=== PATIENT | female | born 1985 | race Caucasian/White ===

== ENCOUNTER 2018-12-25 22:17 | Outpatient (CLI) | payer BC ==
[2018-12-25 22:56] LABS: ADD UMIC YES; UR ASCORBIC ACID NEGATIVE (NEGATIVE); UR BACTERIA FEW /HPF (NONE SEEN); UR BILIRUBIN (Dip) NEGATIVE (NEGATIVE); UR BLOOD (Dip) 1+ mg/dL (NEGATIVE); UR CLARITY SLIGHTLY CLOUDY (CLEAR); UR COLOR YELLOW (YELLOW); UR GLUCOSE (Dip) NEGATIVE (NEGATIVE); UR KETONES (Dip) NEGATIVE (NEGATIVE); UR LEUKOCYTE ESTERASE (Dip) 3+ Leu/ul (NEGATIVE); UR NITRITE (Dip) NEGATIVE (NEGATIVE); UR RBC 19 /HPF (0-5); UR SPECIFIC GRAVITY (Dip) 1.005 (1.003-1.030); UR SQUAMOUS EPITHELIAL CELL FEW /HPF (FEW); UR TOTAL PROTEIN (Dip) NEGATIVE (NEGATIVE); UR UROBILINOGEN (Dip) 1+ mg/dL (NEGATIVE); UR WBC 26 /HPF (0-5)
[2018-12-25 23:29] LABS: ADD MAN DIFF? NO
[2018-12-25 23:31] LABS: WHITE BLOOD COUNT 8.4 10^3/ul (4.8-10.8)
[2018-12-25 23:31] LABS: BASOPHILS % 0.1 % (0.0-2.0); EOSINOPHILS # 0.2 10^3/ul (0.0-0.5); EOSINOPHILS % 2.3 % (0.0-7.0); HEMATOCRIT 34.6 % (37.0-47.0); HEMOGLOBIN 11.2 g/dl (12.0-16.0); LYMPHOCYTES # 1.8 10^3/ul (0.8-2.9); LYMPHOCYTES % 21.2 % (15.0-51.0); MEAN CORPUSCULAR HEMOGLOBIN 31.1 pg (29.0-33.0); MEAN CORPUSCULAR HGB CONC 32.4 g/dl (32.0-37.0); MEAN CORPUSCULAR VOLUME 96.1 fl (82.0-101.0); MEAN PLATELET VOLUME 11.6 fl (7.4-10.4); MONOCYTE # 0.6 10^3/ul (0.3-0.9); MONOCYTES % 7.5 % (0.0-11.0); NEUTROPHIL # 5.7 10^3/ul (1.6-7.5); NEUTROPHILS % 67.9 % (39.0-77.0); PLATELET COUNT 170 10^3/UL (140-415); RED CELL DISTRIBUTION WIDTH 14.5 % (11.5-14.5)
[2018-12-25 23:50] LABS: ALANINE AMINOTRANSFERASE 22 IU/L (13-69); ALBUMIN 2.6 g/dl (3.3-4.9); ALBUMIN/GLOBULIN RATIO 0.83; ALKALINE PHOSPHATASE 209 IU/L (42-121); ANION GAP 6 (5-13); ASPARTATE AMINO TRANSFERASE 22 IU/L (15-46); BILIRUBIN,INDIRECT 0.5 mg/dl (0-1.1); BILIRUBIN,TOTAL 0.5 mg/dl (0.2-1.3); BLOOD UREA NITROGEN 5 mg/dl (7-20); CALCIUM 9.1 mg/dl (8.4-10.2); CARBON DIOXIDE 23 mmol/L (21-31); CHLORIDE 107 mmol/L (97-110); CREATININE 0.49 mg/dl (0.44-1.00); Estimated GFR > 60 mL/min (>60); GLUCOSE 127 mg/dl (70-220); POTASSIUM 3.5 mmol/L (3.5-5.1); SODIUM 136 mmol/L (135-144); TOTAL PROTEIN 5.7 g/dl (6.1-8.1); URIC ACID 5.4 mg/dl (3.1-7.9)
== END 2018-12-26 01:06 | disposition home or self-care (01) ==
LOC: OBT 22:17 → L-D 22:18
DX: O13.3 Gestational [pregnancy-induced] hypertension without significant proteinuria, third trimester (principal); Z3A.35 35 weeks gestation of pregnancy
CPT/HCPCS: 76815; 76818; 80053; 81001; 84560; 85025

== ENCOUNTER 2018-12-27 16:11 | Inpatient (IN) | payer BC ==
[2018-12-27 17:01] LABS: COLLECTION PERIOD 24 hrs
[2018-12-27 17:14] LABS: COLLECTION PERIOD 24 hrs; SCRET 0.49 mg/dl (0.44-1.00); VOLUME 3450 ml/24hrs; VOLUME 3450 mls
[2018-12-27 17:23] LABS: CREATININE,URINE RANDOM 45.69 mg/dl (20-320); PROTEIN/CREAT RATIO 0.37 RATIO
[2018-12-27 17:52] LABS: ADD MAN DIFF? NO
[2018-12-27 17:55] LABS: WHITE BLOOD COUNT 9.7 10^3/ul (4.8-10.8)
[2018-12-27 17:55] LABS: BASOPHILS % 0.2 % (0.0-2.0); EOSINOPHILS # 0.1 10^3/ul (0.0-0.5); EOSINOPHILS % 0.9 % (0.0-7.0); HEMATOCRIT 35.4 % (37.0-47.0); HEMOGLOBIN 11.3 g/dl (12.0-16.0); LYMPHOCYTES # 1.5 10^3/ul (0.8-2.9); MEAN CORPUSCULAR HEMOGLOBIN 30.8 pg (29.0-33.0); MEAN CORPUSCULAR HGB CONC 31.9 g/dl (32.0-37.0); MEAN CORPUSCULAR VOLUME 96.5 fl (82.0-101.0); MEAN PLATELET VOLUME 12.1 fl (7.4-10.4); MONOCYTE # 0.6 10^3/ul (0.3-0.9); MONOCYTES % 6.1 % (0.0-11.0); NEUTROPHIL # 7.5 10^3/ul (1.6-7.5); NEUTROPHILS % 77.2 % (39.0-77.0); PLATELET COUNT 184 10^3/UL (140-415); RED BLOOD COUNT 3.67 10^6/ul (4.20-5.40); RED CELL DISTRIBUTION WIDTH 14.5 % (11.5-14.5)
[2018-12-27 18:02] LABS: 24HR URINE TOTAL PROTEIN 586.5 mg/24hrs (42.0-225.0); CREATININE CLEARANCE 223.4 mls/min (84.0-162.0); CREATININE,URINE RANDOM 45.69 mg/dl (20-320)
[2018-12-27] MEDS ORDERED: DIPHENHYDRAMINE 25 MG CAP PO (19:00)
[2018-12-27 19:44] LABS: ADD MAN DIFF? NO
[2018-12-27 19:47] LABS: WHITE BLOOD COUNT 8.8 10^3/ul (4.8-10.8)
[2018-12-27 19:47] LABS: BASOPHILS % 0.2 % (0.0-2.0); EOSINOPHILS # 0.1 10^3/ul (0.0-0.5); EOSINOPHILS % 0.8 % (0.0-7.0); HEMATOCRIT 34.6 % (37.0-47.0); HEMOGLOBIN 11.2 g/dl (12.0-16.0); LYMPHOCYTES # 1.5 10^3/ul (0.8-2.9); LYMPHOCYTES % 16.7 % (15.0-51.0); MEAN CORPUSCULAR HEMOGLOBIN 31.1 pg (29.0-33.0); MEAN CORPUSCULAR HGB CONC 32.4 g/dl (32.0-37.0); MEAN CORPUSCULAR VOLUME 96.1 fl (82.0-101.0); MEAN PLATELET VOLUME 12.3 fl (7.4-10.4); MONOCYTE # 0.5 10^3/ul (0.3-0.9); MONOCYTES % 5.9 % (0.0-11.0); NEUTROPHIL # 6.6 10^3/ul (1.6-7.5); NEUTROPHILS % 75.5 % (39.0-77.0); PLATELET COUNT 180 10^3/UL (140-415); RED CELL DISTRIBUTION WIDTH 14.4 % (11.5-14.5)
[2018-12-27 19:54] LABS: ALANINE AMINOTRANSFERASE 25 IU/L (13-69); ALBUMIN 2.8 g/dl (3.3-4.9); ALBUMIN/GLOBULIN RATIO 1.03; ALKALINE PHOSPHATASE 196 IU/L (42-121); ANION GAP 9 (5-13); ASPARTATE AMINO TRANSFERASE 22 IU/L (15-46); BILIRUBIN,INDIRECT 0.5 mg/dl (0-1.1); BILIRUBIN,TOTAL 0.5 mg/dl (0.2-1.3); BLOOD UREA NITROGEN 6 mg/dl (7-20); CARBON DIOXIDE 20 mmol/L (21-31); CHLORIDE 106 mmol/L (97-110); CREATININE 0.45 mg/dl (0.44-1.00); Estimated GFR > 60 mL/min (>60); GLUCOSE 73 mg/dl (70-220); POTASSIUM 3.9 mmol/L (3.5-5.1); SODIUM 135 mmol/L (135-144); TOTAL PROTEIN 5.5 g/dl (6.1-8.1); URIC ACID 5.2 mg/dl (3.1-7.9)
[2018-12-27] MEDS: LACTATED RINGER'S 1,000 ML IV (20:38)
[2018-12-27] MEDS: DOCUSATE SODIUM 100 MG CAP PO (20:45)
[2018-12-27] MEDS: PANTOPRAZOLE (EC) 40 MG TAB PO (20:45)
[2018-12-27] MEDS: PRENATAL VITAMIN PO (20:45)
[2018-12-27] MEDS: BETAMET NA PHOS/AC(6 MG/ML) 2 ML INJ SYG IM (21:16)
[2018-12-28] MEDS: CEPHALEXIN 500 MG CAP PO ×4 (00:16→18:30)
[2018-12-28] MEDS: LACTATED RINGER'S 1,000 ML IV ×2 (03:22→11:40)
[2018-12-28] MEDS: PRENATAL VITAMIN PO (08:56)
[2018-12-28] MEDS: AL HYDROX/MG HYDROX/SIMETH 30 ML CUP PO (08:56)
[2018-12-28] MEDS: DOCUSATE SODIUM 100 MG CAP PO (08:56)
[2018-12-28] MEDS: PANTOPRAZOLE (EC) 40 MG TAB PO (10:03)
[2018-12-28 15:33] LABS: ADD MAN DIFF? NO
[2018-12-28 15:38] LABS: WHITE BLOOD COUNT 9.1 10^3/ul (4.8-10.8)
[2018-12-28 15:38] LABS: BASOPHILS % 0.1 % (0.0-2.0); EOSINOPHILS % 0.1 % (0.0-7.0); HEMATOCRIT 35.7 % (37.0-47.0); HEMOGLOBIN 11.5 g/dl (12.0-16.0); LYMPHOCYTES # 1.2 10^3/ul (0.8-2.9); LYMPHOCYTES % 13.4 % (15.0-51.0); MEAN CORPUSCULAR HEMOGLOBIN 31.1 pg (29.0-33.0); MEAN CORPUSCULAR HGB CONC 32.2 g/dl (32.0-37.0); MEAN CORPUSCULAR VOLUME 96.5 fl (82.0-101.0); MEAN PLATELET VOLUME 12.1 fl (7.4-10.4); MONOCYTE # 0.4 10^3/ul (0.3-0.9); MONOCYTES % 4.1 % (0.0-11.0); NEUTROPHIL # 7.4 10^3/ul (1.6-7.5); PLATELET COUNT 180 10^3/UL (140-415); RED CELL DISTRIBUTION WIDTH 14.7 % (11.5-14.5)
[2018-12-28 16:00] LABS: ALANINE AMINOTRANSFERASE 21 IU/L (13-69); ALBUMIN 3.3 g/dl (3.3-4.9); ALKALINE PHOSPHATASE 223 IU/L (42-121); ANION GAP 9 (5-13); ASPARTATE AMINO TRANSFERASE 22 IU/L (15-46); BILIRUBIN,INDIRECT 0.7 mg/dl (0-1.1); BILIRUBIN,TOTAL 0.7 mg/dl (0.2-1.3); BLOOD UREA NITROGEN 5 mg/dl (7-20); CALCIUM 9.3 mg/dl (8.4-10.2); CARBON DIOXIDE 20 mmol/L (21-31); CHLORIDE 107 mmol/L (97-110); CREATININE 0.51 mg/dl (0.44-1.00); Estimated GFR > 60 mL/min (>60); GLUCOSE 124 mg/dl (70-220); POTASSIUM 3.8 mmol/L (3.5-5.1); SODIUM 136 mmol/L (135-144); TOTAL PROTEIN 6.6 g/dl (6.1-8.1)
[2018-12-28] MEDS: BETAMET NA PHOS/AC(6 MG/ML) 2 ML INJ SYG IM (20:56)
[2018-12-29] MEDS: CEPHALEXIN 500 MG CAP PO ×5 (06:00→23:38)
[2018-12-29 06:44] LABS: ADD MAN DIFF? NO
[2018-12-29 06:53] LABS: WHITE BLOOD COUNT 8.8 10^3/ul (4.8-10.8)
[2018-12-29 06:53] LABS: BASOPHILS % 0.1 % (0.0-2.0); HEMATOCRIT 33.2 % (37.0-47.0); HEMOGLOBIN 10.4 g/dl (12.0-16.0); LYMPHOCYTES # 1.1 10^3/ul (0.8-2.9); LYMPHOCYTES % 11.9 % (15.0-51.0); MEAN CORPUSCULAR HEMOGLOBIN 30.4 pg (29.0-33.0); MEAN CORPUSCULAR HGB CONC 31.3 g/dl (32.0-37.0); MEAN CORPUSCULAR VOLUME 97.1 fl (82.0-101.0); MEAN PLATELET VOLUME 12.5 fl (7.4-10.4); MONOCYTE # 0.4 10^3/ul (0.3-0.9); MONOCYTES % 4.1 % (0.0-11.0); NEUTROPHIL # 7.2 10^3/ul (1.6-7.5); PLATELET COUNT 169 10^3/UL (140-415); RED BLOOD COUNT 3.42 10^6/ul (4.20-5.40); RED CELL DISTRIBUTION WIDTH 14.9 % (11.5-14.5)
[2018-12-29 07:17] LABS: ALANINE AMINOTRANSFERASE 25 IU/L (13-69); ALBUMIN 2.6 g/dl (3.3-4.9); ALBUMIN/GLOBULIN RATIO 0.86; ALKALINE PHOSPHATASE 197 IU/L (42-121); ANION GAP 7 (5-13); ASPARTATE AMINO TRANSFERASE 31 IU/L (15-46); BILIRUBIN,INDIRECT 0.5 mg/dl (0-1.1); BILIRUBIN,TOTAL 0.5 mg/dl (0.2-1.3); BLOOD UREA NITROGEN 5 mg/dl (7-20); CARBON DIOXIDE 23 mmol/L (21-31); CHLORIDE 108 mmol/L (97-110); CREATININE 0.45 mg/dl (0.44-1.00); Estimated GFR > 60 mL/min (>60); GLUCOSE 126 mg/dl (70-220); LACTATE DEHYDROGENASE 460 IU/L (313-618); POTASSIUM 4.1 mmol/L (3.5-5.1); SODIUM 138 mmol/L (135-144); TOTAL PROTEIN 5.6 g/dl (6.1-8.1); URIC ACID 5.8 mg/dl (3.1-7.9)
[2018-12-29] MEDS: PANTOPRAZOLE (EC) 40 MG TAB PO (09:00)
[2018-12-29] MEDS: DOCUSATE SODIUM 100 MG CAP PO (11:37)
[2018-12-29] MEDS: PRENATAL VITAMIN PO (11:37)
[2018-12-30] MEDS: CEPHALEXIN 500 MG CAP PO ×4 (06:05→23:56)
[2018-12-30 06:43] LABS: ADD MAN DIFF? NO
[2018-12-30 06:45] LABS: BASOPHILS % 0.4 % (0.0-2.0); EOSINOPHILS % 0.3 % (0.0-7.0); LYMPHOCYTES # 1.8 10^3/ul (0.8-2.9); LYMPHOCYTES % 22.1 % (15.0-51.0); MEAN CORPUSCULAR HEMOGLOBIN 31.1 pg (29.0-33.0); MEAN CORPUSCULAR HGB CONC 31.3 g/dl (32.0-37.0); MEAN CORPUSCULAR VOLUME 99.4 fl (82.0-101.0); MEAN PLATELET VOLUME 11.5 fl (7.4-10.4); MONOCYTE # 0.7 10^3/ul (0.3-0.9); MONOCYTES % 8.9 % (0.0-11.0); NEUTROPHIL # 5.1 10^3/ul (1.6-7.5); NEUTROPHILS % 64.3 % (39.0-77.0); NUCLEATED RED BLOOD CELLS% 0.3 /100WBC (0.0-0.0); PLATELET COUNT 160 10^3/UL (140-415); RED BLOOD COUNT 3.22 10^6/ul (4.20-5.40)
[2018-12-30 07:09] LABS: ALANINE AMINOTRANSFERASE 39 IU/L (13-69); ALBUMIN 2.8 g/dl (3.3-4.9); ALKALINE PHOSPHATASE 167 IU/L (42-121); ANION GAP 6 (5-13); ASPARTATE AMINO TRANSFERASE 50 IU/L (15-46); BILIRUBIN,INDIRECT 0.4 mg/dl (0-1.1); BILIRUBIN,TOTAL 0.4 mg/dl (0.2-1.3); BLOOD UREA NITROGEN 8 mg/dl (7-20); CALCIUM 8.6 mg/dl (8.4-10.2); CARBON DIOXIDE 22 mmol/L (21-31); CHLORIDE 110 mmol/L (97-110); CREATININE 0.48 mg/dl (0.44-1.00); Estimated GFR > 60 mL/min (>60); GLUCOSE 95 mg/dl (70-220); LACTATE DEHYDROGENASE 299 IU/L (313-618); POTASSIUM 3.8 mmol/L (3.5-5.1); SODIUM 138 mmol/L (135-144); TOTAL PROTEIN 5.6 g/dl (6.1-8.1); URIC ACID 6.1 mg/dl (3.1-7.9)
[2018-12-30] MEDS: DOCUSATE SODIUM 100 MG CAP PO (09:47)
[2018-12-30] MEDS: PRENATAL VITAMIN PO (13:35)
[2018-12-30] MEDS: PANTOPRAZOLE (EC) 40 MG TAB PO (15:25)
[2018-12-31] MEDS: CEPHALEXIN 500 MG CAP PO ×2 (05:48→12:10)
[2018-12-31 06:11] LABS: ADD MAN DIFF? NO
[2018-12-31 06:17] LABS: BASOPHILS % 0.2 % (0.0-2.0); EOSINOPHILS # 0.1 10^3/ul (0.0-0.5); EOSINOPHILS % 0.9 % (0.0-7.0); HEMATOCRIT 32.6 % (37.0-47.0); HEMOGLOBIN 10.1 g/dl (12.0-16.0); LYMPHOCYTES # 1.8 10^3/ul (0.8-2.9); MEAN CORPUSCULAR HEMOGLOBIN 30.3 pg (29.0-33.0); MEAN CORPUSCULAR VOLUME 97.9 fl (82.0-101.0); MEAN PLATELET VOLUME 12.3 fl (7.4-10.4); MONOCYTE # 0.6 10^3/ul (0.3-0.9); MONOCYTES % 7.5 % (0.0-11.0); NEUTROPHIL # 5.4 10^3/ul (1.6-7.5); NEUTROPHILS % 67.5 % (39.0-77.0); PLATELET COUNT 172 10^3/UL (140-415); RED BLOOD COUNT 3.33 10^6/ul (4.20-5.40); RED CELL DISTRIBUTION WIDTH 15.1 % (11.5-14.5)
[2018-12-31 06:42] LABS: ALANINE AMINOTRANSFERASE 61 IU/L (13-69); ALKALINE PHOSPHATASE 179 IU/L (42-121); ANION GAP 3 (5-13); ASPARTATE AMINO TRANSFERASE 55 IU/L (15-46); BILIRUBIN,INDIRECT 0.5 mg/dl (0-1.1); BILIRUBIN,TOTAL 0.5 mg/dl (0.2-1.3); BLOOD UREA NITROGEN 7 mg/dl (7-20); CALCIUM 8.8 mg/dl (8.4-10.2); CARBON DIOXIDE 24 mmol/L (21-31); CHLORIDE 109 mmol/L (97-110); CREATININE 0.42 mg/dl (0.44-1.00); Estimated GFR > 60 mL/min (>60); GLUCOSE 107 mg/dl (70-220); LACTATE DEHYDROGENASE 333 IU/L (313-618); POTASSIUM 4.2 mmol/L (3.5-5.1); SODIUM 136 mmol/L (135-144); URIC ACID 4.9 mg/dl (3.1-7.9)
[2018-12-31 06:43] LABS: ALBUMIN 2.3 g/dl (3.3-4.9); ALBUMIN/GLOBULIN RATIO 0.85
[2018-12-31] MEDS: PRENATAL VITAMIN PO (08:34)
[2018-12-31] MEDS: DOCUSATE SODIUM 100 MG CAP PO (08:34)
[2018-12-31] MEDS: PANTOPRAZOLE (EC) 40 MG TAB PO (10:51)
[2018-12-31] MEDS: CEPHALEXIN 250 MG CAP PO ×2 (18:17→23:40)
[2019-01-01 05:54] LABS: ADD MAN DIFF? NO
[2019-01-01 05:57] LABS: BASOPHILS % 0.2 % (0.0-2.0); EOSINOPHILS # 0.1 10^3/ul (0.0-0.5); EOSINOPHILS % 1.3 % (0.0-7.0); HEMATOCRIT 33.8 % (37.0-47.0); HEMOGLOBIN 10.9 g/dl (12.0-16.0); LYMPHOCYTES # 1.6 10^3/ul (0.8-2.9); LYMPHOCYTES % 19.3 % (15.0-51.0); MEAN CORPUSCULAR HEMOGLOBIN 31.8 pg (29.0-33.0); MEAN CORPUSCULAR HGB CONC 32.2 g/dl (32.0-37.0); MEAN CORPUSCULAR VOLUME 98.5 fl (82.0-101.0); MEAN PLATELET VOLUME 11.9 fl (7.4-10.4); MONOCYTE # 0.5 10^3/ul (0.3-0.9); MONOCYTES % 6.2 % (0.0-11.0); NEUTROPHIL # 5.9 10^3/ul (1.6-7.5); NEUTROPHILS % 71.3 % (39.0-77.0); PLATELET COUNT 169 10^3/UL (140-415); RED BLOOD COUNT 3.43 10^6/ul (4.20-5.40); RED CELL DISTRIBUTION WIDTH 14.8 % (11.5-14.5)
[2019-01-01 05:57] LABS: WHITE BLOOD COUNT 8.2 10^3/ul (4.8-10.8)
[2019-01-01 06:28] LABS: ALANINE AMINOTRANSFERASE 74 IU/L (13-69); ALBUMIN 2.6 g/dl (3.3-4.9); ALBUMIN/GLOBULIN RATIO 0.86; ALKALINE PHOSPHATASE 204 IU/L (42-121); ANION GAP 5 (5-13); ASPARTATE AMINO TRANSFERASE 66 IU/L (15-46); BILIRUBIN,INDIRECT 0.7 mg/dl (0-1.1); BILIRUBIN,TOTAL 0.7 mg/dl (0.2-1.3); BLOOD UREA NITROGEN 7 mg/dl (7-20); CARBON DIOXIDE 23 mmol/L (21-31); CHLORIDE 108 mmol/L (97-110); CREATININE 0.46 mg/dl (0.44-1.00); Estimated GFR > 60 mL/min (>60); GLUCOSE 95 mg/dl (70-220); LACTATE DEHYDROGENASE 306 IU/L (313-618); POTASSIUM 3.8 mmol/L (3.5-5.1); SODIUM 136 mmol/L (135-144); TOTAL PROTEIN 5.6 g/dl (6.1-8.1); URIC ACID 4.8 mg/dl (3.1-7.9)
[2019-01-01] MEDS: PANTOPRAZOLE (EC) 40 MG TAB PO (06:42)
[2019-01-01] MEDS: CEPHALEXIN 250 MG CAP PO ×2 (08:17→12:37)
[2019-01-01] MEDS: DOCUSATE SODIUM 100 MG CAP PO (09:47)
[2019-01-01] MEDS: PRENATAL VITAMIN PO (09:47)
[2019-01-01] MEDS: CEPHALEXIN 500 MG CAP PO ×2 (18:28→23:43)
[2019-01-02] MEDS: CEPHALEXIN 500 MG CAP PO ×2 (06:00→12:00)
[2019-01-02] MEDS: PANTOPRAZOLE (EC) 40 MG TAB PO (06:00)
[2019-01-02 06:07] LABS: ADD MAN DIFF? NO
[2019-01-02 06:15] LABS: WHITE BLOOD COUNT 9.2 10^3/ul (4.8-10.8)
[2019-01-02 06:15] LABS: BASOPHILS % 0.3 % (0.0-2.0); EOSINOPHILS # 0.1 10^3/ul (0.0-0.5); EOSINOPHILS % 1.4 % (0.0-7.0); HEMATOCRIT 34.8 % (37.0-47.0); HEMOGLOBIN 11.1 g/dl (12.0-16.0); LYMPHOCYTES % 21.5 % (15.0-51.0); MEAN CORPUSCULAR HEMOGLOBIN 31.3 pg (29.0-33.0); MEAN CORPUSCULAR HGB CONC 31.9 g/dl (32.0-37.0); MEAN PLATELET VOLUME 12.2 fl (7.4-10.4); MONOCYTE # 0.6 10^3/ul (0.3-0.9); MONOCYTES % 6.5 % (0.0-11.0); NEUTROPHIL # 6.3 10^3/ul (1.6-7.5); PLATELET COUNT 182 10^3/UL (140-415); RED BLOOD COUNT 3.55 10^6/ul (4.20-5.40); RED CELL DISTRIBUTION WIDTH 14.6 % (11.5-14.5)
[2019-01-02 06:44] LABS: ALANINE AMINOTRANSFERASE 77 IU/L (13-69); ALBUMIN 2.7 g/dl (3.3-4.9); ALKALINE PHOSPHATASE 215 IU/L (42-121); ANION GAP 3 (5-13); ASPARTATE AMINO TRANSFERASE 59 IU/L (15-46); BILIRUBIN,INDIRECT 0.6 mg/dl (0-1.1); BILIRUBIN,TOTAL 0.6 mg/dl (0.2-1.3); BLOOD UREA NITROGEN 7 mg/dl (7-20); CALCIUM 9.1 mg/dl (8.4-10.2); CARBON DIOXIDE 25 mmol/L (21-31); CHLORIDE 108 mmol/L (97-110); CREATININE 0.53 mg/dl (0.44-1.00); Estimated GFR > 60 mL/min (>60); GLUCOSE 93 mg/dl (70-220); LACTATE DEHYDROGENASE 443 IU/L (313-618); POTASSIUM 4.1 mmol/L (3.5-5.1); SODIUM 136 mmol/L (135-144); TOTAL PROTEIN 5.7 g/dl (6.1-8.1)
[2019-01-02] MEDS: DOCUSATE SODIUM 100 MG CAP PO (09:12)
[2019-01-02] MEDS: PRENATAL VITAMIN PO (09:12)
[2019-01-02] MEDS: AL HYDROX/MG HYDROX/SIMETH 30 ML CUP PO (09:12)
[2019-01-03] MEDS: PANTOPRAZOLE (EC) 40 MG TAB PO (05:57)
[2019-01-03] MEDS: PRENATAL VITAMIN PO (08:50)
[2019-01-03] MEDS: DOCUSATE SODIUM 100 MG CAP PO (08:50)
[2019-01-03 08:55] LABS: ADD MAN DIFF? NO
[2019-01-03 08:57] LABS: WHITE BLOOD COUNT 9.7 10^3/ul (4.8-10.8)
[2019-01-03 08:57] LABS: BASOPHILS % 0.2 % (0.0-2.0); EOSINOPHILS # 0.1 10^3/ul (0.0-0.5); EOSINOPHILS % 1.3 % (0.0-7.0); HEMATOCRIT 35.3 % (37.0-47.0); HEMOGLOBIN 11.2 g/dl (12.0-16.0); LYMPHOCYTES # 1.9 10^3/ul (0.8-2.9); LYMPHOCYTES % 19.7 % (15.0-51.0); MEAN CORPUSCULAR HEMOGLOBIN 30.8 pg (29.0-33.0); MEAN CORPUSCULAR HGB CONC 31.7 g/dl (32.0-37.0); MEAN PLATELET VOLUME 11.7 fl (7.4-10.4); MONOCYTE # 0.5 10^3/ul (0.3-0.9); MONOCYTES % 5.6 % (0.0-11.0); NEUTROPHIL # 6.9 10^3/ul (1.6-7.5); NEUTROPHILS % 71.9 % (39.0-77.0); PLATELET COUNT 177 10^3/UL (140-415); RED BLOOD COUNT 3.64 10^6/ul (4.20-5.40); RED CELL DISTRIBUTION WIDTH 14.8 % (11.5-14.5)
[2019-01-03 09:15] LABS: ALANINE AMINOTRANSFERASE 73 IU/L (13-69); ALBUMIN 2.8 g/dl (3.3-4.9); ALKALINE PHOSPHATASE 219 IU/L (42-121); ANION GAP 5 (5-13); ASPARTATE AMINO TRANSFERASE 51 IU/L (15-46); BILIRUBIN,INDIRECT 0.8 mg/dl (0-1.1); BILIRUBIN,TOTAL 0.8 mg/dl (0.2-1.3); BLOOD UREA NITROGEN 5 mg/dl (7-20); CARBON DIOXIDE 22 mmol/L (21-31); CHLORIDE 108 mmol/L (97-110); CREATININE 0.43 mg/dl (0.44-1.00); Estimated GFR > 60 mL/min (>60); GLUCOSE 98 mg/dl (70-220); LACTATE DEHYDROGENASE 294 IU/L (313-618); POTASSIUM 3.8 mmol/L (3.5-5.1); SODIUM 135 mmol/L (135-144); TOTAL PROTEIN 5.9 g/dl (6.1-8.1); URIC ACID 4.7 mg/dl (3.1-7.9)
[2019-01-03] MEDS: ACETAMINOPHEN 500 MG TAB PO (17:25)
[2019-01-04] MEDS: PANTOPRAZOLE (EC) 40 MG TAB PO (06:02)
[2019-01-04] MEDS ORDERED: OXYTOCIN 30 UNITS/LR 500 ML IV ×2 (08:30)
[2019-01-04] MEDS ORDERED: METHYLERGONOVINE 0.2 MG INJ IM (08:30)
[2019-01-04] MEDS ORDERED: MISOPROSTOL 200 MCG TAB PR (08:30)
[2019-01-04] MEDS ORDERED: LIDOCAINE 1% (MPF) 30 ML INJ INJ (08:30)
[2019-01-04] MEDS: PRENATAL VITAMIN PO (08:54)
[2019-01-04] MEDS: DOCUSATE SODIUM 100 MG CAP PO (08:54)
[2019-01-04 10:17] LABS: ADD MAN DIFF? NO
[2019-01-04 10:21] LABS: WHITE BLOOD COUNT 8.7 10^3/ul (4.8-10.8)
[2019-01-04 10:21] LABS: BASOPHILS % 0.2 % (0.0-2.0); EOSINOPHILS # 0.1 10^3/ul (0.0-0.5); EOSINOPHILS % 1.4 % (0.0-7.0); HEMOGLOBIN 11.2 g/dl (12.0-16.0); LYMPHOCYTES # 1.9 10^3/ul (0.8-2.9); MEAN CORPUSCULAR HEMOGLOBIN 29.6 pg (29.0-33.0); MEAN CORPUSCULAR HGB CONC 30.3 g/dl (32.0-37.0); MEAN CORPUSCULAR VOLUME 97.9 fl (82.0-101.0); MEAN PLATELET VOLUME 12.5 fl (7.4-10.4); MONOCYTE # 0.7 10^3/ul (0.3-0.9); MONOCYTES % 7.6 % (0.0-11.0); NEUTROPHIL # 5.9 10^3/ul (1.6-7.5); NEUTROPHILS % 67.5 % (39.0-77.0); PLATELET COUNT 197 10^3/UL (140-415); RED BLOOD COUNT 3.78 10^6/ul (4.20-5.40); RED CELL DISTRIBUTION WIDTH 14.9 % (11.5-14.5)
[2019-01-04] MEDS: MISOPROSTOL 50 MCG CAPSULE PO ×3 (10:28→22:36)
[2019-01-04] MEDS: LACTATED RINGER'S 1,000 ML IV ×3 (10:36→21:07)
[2019-01-04 11:32] LABS: INR 1.03; PROTIME 13.6 Sec (11.9-14.9); PT RATIO 1.1
[2019-01-04] MEDS: MISOPROSTOL 50 MCG CAPSULE VAG (17:54)
[2019-01-04 18:56] LABS: RAPID PLASMA REAGIN NONREACTIVE (NR)
[2019-01-04] MEDS ORDERED: FENTAnyl 2MCG/ML-ROPIV 0.2% 100 ML (21:14)
[2019-01-04] MEDS ORDERED: FENTAnyl 50 MCG/ML VIAL (21:14)
[2019-01-04] MEDS ORDERED: NALOXONE (0.4 MG/ML) INJ IV (21:30)
[2019-01-05] MEDS: LACTATED RINGER'S 1,000 ML IV ×3 (00:50→17:20)
[2019-01-05] MEDS: MISOPROSTOL 50 MCG CAPSULE PO ×4 (04:31→18:41)
[2019-01-05] MEDS: PANTOPRAZOLE (EC) 40 MG TAB PO (06:00)
[2019-01-05] MEDS: FENTAnyl 2MCG/ML-ROPIV 0.2% 100 ML BAG EPI ×2 (07:18→17:21)
[2019-01-05] MEDS: PRENATAL VITAMIN PO (09:00)
[2019-01-05] MEDS: DOCUSATE SODIUM 100 MG CAP PO (09:00)
[2019-01-06] MEDS: OXYTOCIN 30 UNITS/LR 500 ML IV (00:05)
[2019-01-06] MEDS: LACTATED RINGER'S 1,000 ML IV ×3 (01:20→19:43)
[2019-01-06] MEDS: FENTAnyl 2MCG/ML-ROPIV 0.2% 100 ML BAG EPI ×3 (03:21→23:37)
[2019-01-07] MEDS: LACTATED RINGER'S 1,000 ML IV ×2 (03:50→22:30)
[2019-01-07] MEDS: PANTOPRAZOLE (EC) 40 MG TAB PO (06:00)
[2019-01-07] MEDS: DOCUSATE SODIUM 100 MG CAP PO (06:06)
[2019-01-07] MEDS: PRENATAL VITAMIN PO (06:06)
[2019-01-07] MEDS: FENTAnyl 2MCG/ML-ROPIV 0.2% 100 ML BAG EPI (09:37)
[2019-01-07] MEDS ORDERED: metroNIDAZOLE 500 MG TAB PO (10:00)
[2019-01-07] MEDS ORDERED: ROPIVACAINE 0.5 % 30 ML VIAL (11:33)
[2019-01-07] MEDS: CEFAZOLIN 3 GM in DEXTROSE 5% 100 ML IV (11:35)
[2019-01-07] MEDS ORDERED: LABETALOL HCL 20MG INJ (11:51)
[2019-01-07] MEDS ORDERED: OXYTOCIN 10 UNIT INJ ×2 (12:02)
[2019-01-07] MEDS ORDERED: METOCLOPRAMIDE 10 MG INJ (12:13)
[2019-01-07] MEDS ORDERED: CEFAZOLIN 1 GM INJ (12:13)
[2019-01-07] MEDS ORDERED: SUCCINYLCHOLINE CHLORIDE 100 MG/5 ML SYG IV (12:13)
[2019-01-07] MEDS ORDERED: DEXAMETHASONE 4 MG/ML 1 ML INJ (12:13)
[2019-01-07] MEDS ORDERED: KETOROLAC 30 MG INJ (12:13)
[2019-01-07] MEDS ORDERED: PROPOFOL 20 ML (12:13)
[2019-01-07] MEDS ORDERED: PHENYLephrine (100 MCG/ML) 10ML SYG (12:17)
[2019-01-07] MEDS ORDERED: MEPERIDINE 25 MG INJ IV ×2 (12:30→16:00)
[2019-01-07] MEDS ORDERED: OXYCODONE/ACETAMINOPHEN (5/325) TAB PO ×3 (12:30→16:00)
[2019-01-07] MEDS ORDERED: METOCLOPRAMIDE 10 MG INJ IV ×2 (12:30→16:00)
[2019-01-07] MEDS ORDERED: ONDANSETRON 4 MG INJ IV ×3 (12:30→16:30)
[2019-01-07] MEDS ORDERED: FENTAnyl 50 MCG/ML VIAL IV ×5 (12:30→16:00)
[2019-01-07] MEDS ORDERED: LABETALOL HCL 20MG INJ IV ×2 (12:30→16:00)
[2019-01-07] MEDS ORDERED: HYDROmorphONE 1 MG/5 ML IV SYRINGE IV ×5 (12:30→16:00)
[2019-01-07] MEDS ORDERED: EPHEDrine 25 MG/5 ML SYG IV ×2 (12:30→16:00)
[2019-01-07] MEDS ORDERED: DIPHENHYDRAMINE 50 MG INJ IV ×3 (12:30→16:30)
[2019-01-07] MEDS ORDERED: MISOPROSTOL 200 MCG TAB PR (13:00)
[2019-01-07] MEDS ORDERED: NACL 0.9% 3 ML SYG IV ×2 (13:00)
[2019-01-07] MEDS ORDERED: CARBOPROST 250 MCG INJ IM (13:00)
[2019-01-07] MEDS ORDERED: LANOLIN HPA 1 PKT TOP (13:00)
[2019-01-07] MEDS ORDERED: METHYLERGONOVINE 0.2 MG INJ IM (13:00)
[2019-01-07] MEDS: AZITHROMYCIN 500MG/NS (PMX) 250 ML IV (13:19)
[2019-01-07] MEDS: OXYTOCIN 30 UNITS/LR 500 ML IV ×3 (13:27→22:14)
[2019-01-07] MEDS: CARBOPROST 250 MCG INJ IM (14:42)
[2019-01-07] MEDS: ONDANSETRON 4 MG INJ IV (16:20)
[2019-01-07] MEDS ORDERED: NALOXONE (0.4 MG/ML) INJ IV (16:30)
[2019-01-07] MEDS ORDERED: morphine 2 MG INJ IV ×2 (16:30)
[2019-01-07] MEDS ORDERED: HYDROmorphONE 0.5 MG/0.5 ML SYG IV (16:30)
[2019-01-07] MEDS ORDERED: ACETAMINOPHEN 500 MG TAB PO (16:30)
[2019-01-07] MEDS ORDERED: NALBUPHINE HCL (10 MG/1 ML) INJ IV (16:30)
[2019-01-07] MEDS: IBUPROFEN 600 MG TAB PO (18:00)
[2019-01-07] MEDS: CEFAZOLIN 2 GM/50 ML (PMX) 50 ML IVPB (20:07)
[2019-01-07] MEDS: KETOROLAC 30 MG INJ IV (20:07)
[2019-01-07] MEDS: metroNIDAZOLE 500 MG TAB GTB (20:58)
[2019-01-07] MEDS: HYDROmorphONE 0.5 MG/0.5 ML SYG IV (22:12)
[2019-01-08] MEDS: HYDROmorphONE 0.5 MG/0.5 ML SYG IV ×2 (01:05→07:05)
[2019-01-08] MEDS: KETOROLAC 30 MG INJ IV (04:54)
[2019-01-08] MEDS: CEFAZOLIN 2 GM/50 ML (PMX) 50 ML IVPB ×2 (05:11→12:35)
[2019-01-08] MEDS: IBUPROFEN 600 MG TAB PO ×4 (06:00→17:59)
[2019-01-08] MEDS: LACTATED RINGER'S 1,000 ML IV ×3 (06:30→22:30)
[2019-01-08] MEDS: metroNIDAZOLE 500 MG TAB GTB ×2 (09:26→21:39)
[2019-01-08 09:27] LABS: ADD MAN DIFF? NO
[2019-01-08 09:28] LABS: WHITE BLOOD COUNT 12.7 10^3/ul (4.8-10.8)
[2019-01-08 09:28] LABS: BASOPHILS % 0.2 % (0.0-2.0); EOSINOPHILS # 0.1 10^3/ul (0.0-0.5); EOSINOPHILS % 0.7 % (0.0-7.0); HEMATOCRIT 36.8 % (37.0-47.0); HEMOGLOBIN 11.8 g/dl (12.0-16.0); LYMPHOCYTES # 1.5 10^3/ul (0.8-2.9); LYMPHOCYTES % 11.8 % (15.0-51.0); MEAN CORPUSCULAR HGB CONC 32.1 g/dl (32.0-37.0); MEAN CORPUSCULAR VOLUME 96.6 fl (82.0-101.0); MEAN PLATELET VOLUME 11.7 fl (7.4-10.4); MONOCYTE # 1.1 10^3/ul (0.3-0.9); MONOCYTES % 8.8 % (0.0-11.0); NEUTROPHIL # 9.9 10^3/ul (1.6-7.5); NEUTROPHILS % 77.8 % (39.0-77.0); PLATELET COUNT 183 10^3/UL (140-415); RED BLOOD COUNT 3.81 10^6/ul (4.20-5.40); RED CELL DISTRIBUTION WIDTH 14.9 % (11.5-14.5)
[2019-01-08 10:24] LABS: HEPATITIS B SURFACE ANTIGEN NEGATIVE (NEGATIVE)
[2019-01-08] MEDS: HYDROCODONE/APAP (5/325) TAB PO ×2 (11:29→17:59)
[2019-01-08] MEDS: OXYCODONE/ACETAMINOPHEN (5/325) TAB PO ×2 (14:48→21:39)
[2019-01-09] MEDS: IBUPROFEN 600 MG TAB PO ×4 (00:12→18:16)
[2019-01-09] MEDS: OXYCODONE/ACETAMINOPHEN (5/325) TAB PO ×3 (02:07→21:39)
[2019-01-09] MEDS: HYDROCODONE/APAP (5/325) TAB PO ×2 (06:35→10:52)
[2019-01-09] MEDS: metroNIDAZOLE 500 MG TAB GTB ×2 (08:41→21:24)
[2019-01-10] MEDS: IBUPROFEN 600 MG TAB PO ×4 (00:55→18:00)
[2019-01-10] MEDS: OXYCODONE/ACETAMINOPHEN (5/325) TAB PO ×2 (02:06→10:35)
[2019-01-10 08:31] LABS: ALANINE AMINOTRANSFERASE 25 IU/L (13-69); ALBUMIN 2.9 g/dl (3.3-4.9); ALBUMIN/GLOBULIN RATIO 0.82; ALKALINE PHOSPHATASE 179 IU/L (42-121); ANION GAP 6 (5-13); ASPARTATE AMINO TRANSFERASE 39 IU/L (15-46); BILIRUBIN,INDIRECT 0.6 mg/dl (0-1.1); BILIRUBIN,TOTAL 0.6 mg/dl (0.2-1.3); BLOOD UREA NITROGEN 12 mg/dl (7-20); CALCIUM 9.2 mg/dl (8.4-10.2); CARBON DIOXIDE 25 mmol/L (21-31); CHLORIDE 109 mmol/L (97-110); CREATININE 0.59 mg/dl (0.44-1.00); Estimated GFR > 60 mL/min (>60); GLUCOSE 82 mg/dl (70-220); POTASSIUM 4.1 mmol/L (3.5-5.1); SODIUM 140 mmol/L (135-144); TOTAL PROTEIN 6.4 g/dl (6.1-8.1)
[2019-01-10] MEDS: metroNIDAZOLE 500 MG TAB GTB (10:31)
== END 2019-01-10 18:52 | disposition home or self-care (01) | DRG 788 ==
LOC: OBT 16:11 → L-D 01-04 09:45 → PP1 01-07 16:36 → OBT 18:30 → L-D 18:30
PROC: 10D00Z1 Extraction of Products of Conception, Low, Open Approach (ICD-10-PCS; principal; 2019-01-07 11:30)
DX: O99.214 Obesity complicating childbirth (principal); O61.0 Failed medical induction of labor; O14.94 Unspecified pre-eclampsia, complicating childbirth; A59.01 Trichomonal vulvovaginitis; Z3A.37 37 weeks gestation of pregnancy; Z37.0 Single live birth
CPT/HCPCS: 62322; 76815; 76818; 80053; 81003; 82570; 82575; 83615; 84156; 84560; 85025; 85610; 85730; 86592; 86850; 86900; 86901; 87210; 87340; 99464